=== PATIENT | female | born 1990 | race Two or more races ===

== ENCOUNTER 2017-01-05 22:46 | Emergency (ER) | payer SELFPAY ==
--- NOTE | 2017-01-05 23:25 | NUR ---
CALLED FOR PT NO ANSWER LWBT
== END 2017-01-05 23:42 | disposition left against medical advice (07) ==
LOC: ER 22:48
DX: R10.9 Unspecified abdominal pain (principal); Z53.21 Procedure and treatment not carried out due to patient leaving prior to being seen by health care provider